=== PATIENT | male | born 1965 | race Asian ===

== ENCOUNTER 2016-10-17 10:04 | Outpatient (CLI) | payer MEDICAID | END 2016-10-17 10:05 | disposition home or self-care (01) | DX: M25.562 Pain in left knee (principal) ==

== ENCOUNTER 2016-11-17 11:07 | Outpatient (CLI) | payer MEDICAID | END 2016-11-17 11:08 | disposition home or self-care (01) | DX: I10 Essential (primary) hypertension (principal); E78.5 Hyperlipidemia, unspecified; E03.8 Other specified hypothyroidism ==

== ENCOUNTER 2016-11-21 09:24 | Outpatient (CLI) | payer MEDICAID | END 2016-11-21 09:25 | disposition home or self-care (01) | DX: D53.9 Nutritional anemia, unspecified (principal) ==

== ENCOUNTER 2017-04-04 08:26 | Outpatient (CLI) | payer MEDICAID ==
--- NOTE | 2017-04-04 14:27 | MRI Report ---
EXAM: LEFT KNEE MRI WITHOUT CONTRAST EXAM DATE: 04/04/2017 09:14 AM. CLINICAL HISTORY: Pain in left knee. COMPARISON: Plain x-ray of the knee from 10/17/2016. TECHNIQUE: Multiplanar, multisequence T1-weighted and fluid-sensitive sequences of the knee without c ontrast. Other: None. FINDINGS: Bones: No fractures or subluxations. No marrow edema. No bone lesions. Articular Cartilage: Unremarkable. Medial Meniscus: The medial meniscus is intact. Lateral Meniscus: The lateral meniscus is intact. Cruciate Ligaments: PCL is normal. 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 This is estimated to involve about 75% of the attachment point. Collateral Ligaments: The medial collateral and lateral collateral ligamentous structures are intact. Tendons: Hamstring muscles, quadriceps mechanism appear unremarkable. Popliteus also normal. Musculature: No edema or fatty atrophy. Other: No effusion. Small popliteal cyst. No loose bodies. The medial and lateral retinacula are int act. Small amount of edema is seen in the prepatellar fat pad.. IMPRESSION: 1. 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 2. PCL, collaterals, menisci, bones, and articular surfaces appear unremarkable. 3. Small popliteal cyst. Some edema seen in the suprapatellar fat pad. [facility] MUSCULOSKELETAL RADIOLOGY SECTION Referring Provider Line: [phone] SITE ID: [id number]
== END 2017-04-04 08:27 | disposition home or self-care (01) ==
LOC: DI 08:26
PROVIDERS: ATTEND Orthopaedic Surgery
DX: M25.562 Pain in left knee (principal); S83.512A Sprain of anterior cruciate ligament of left knee, initial encounter; M71.22 Synovial cyst of popliteal space [Baker], left knee

== ENCOUNTER 2018-07-25 09:24 | Outpatient (CLI) | payer MEDICAID ==
[2018-07-25 18:17] LABS: BASOPHILS % (AUTO) 0.8 %; EOSINOPHILS # (AUTO) 0.1 10^3/uL (0.0-0.7); EOSINOPHILS % (AUTO) 1.7 %; HGB - HEMOGLOBIN 15.1 g/dL (14.0-18.0); LYMPHOCYTES % (AUTO) 24.7 %; MEAN CORPUSCULAR HEMOGLOBIN 32.8 pg (27.0-31.0); MEAN CORPUSCULAR VOLUME 99.3 fL (80.0-94.0); MEAN PLATELET VOLUME 7.8 fL (7.4-11.4); MONOCYTES # (AUTO) 0.3 10^3/uL (0.0-1.0); MONOCYTES % (AUTO) 7.6 %; NEUTROPHILS # (AUTO) 2.7 10^3/uL (1.5-6.6); NEUTROPHILS % (AUTO) 65.2 %; PLT - PLATELET COUNT 251 10^3/uL (130-450); RED BLOOD COUNT 4.61 10^6/uL (4.70-6.10); RED CELL DISTRIBUTION WIDTH 12.7 % (12.0-15.0); WHITE BLOOD COUNT 4.1 x10^3/uL (4.8-10.8)
[2018-07-25 18:46] LABS: ALBUMIN 4.6 g/dL (3.2-5.5); ALBUMIN/GLOBULIN RATIO 1.5 (1.0-2.2); ALKALINE PHOSPHATASE 42 IU/L (42-121); ALT ALANINE AMINOTRANSFERASE 18 IU/L (10-60); AST ASPARTATE AMINOTRANSFERASE 19 IU/L (10-42); BILIRUBIN,TOTAL 1.1 mg/dL (0.2-1.0); BUN - BLOOD UREA NITROGEN 19 mg/dL (6-20); CALCIUM 9.1 mg/dL (8.5-10.3); CARBON DIOXIDE - CO2 28 mmol/L (21-32); CHLORIDE 102 mmol/L (101-111); CHOL/HDL RATIO 4.6 (<5.0); CHOLESTEROL 224 mg/dL; CREATININE 0.9 mg/dL (0.6-1.2); GFR - MDRD 88 (>89); GLUCOSE 92 mg/dL (70-100); HDL CHOLESTEROL 49 mg/dL; LDL CHOLESTEROL,CALCULATED 148 mg/dL; SODIUM 137 mmol/L (135-145); TOTAL PROTEIN 7.6 g/dL (6.7-8.2); VLDL CHOLESTEROL 27 mg/dL
== END 2018-07-25 09:25 | disposition home or self-care (01) ==
LOC: LAB.F 09:24
PROVIDERS: ATTEND Nurse Practitioner Family
DX: I10 Essential (primary) hypertension (principal); E78.5 Hyperlipidemia, unspecified
CPT/HCPCS: 36415; 80053; 80061; 83721; 84443; 85025

== ENCOUNTER 2018-08-06 14:07 | Outpatient (CLI) | payer MEDICAID | END 2018-08-06 14:08 | disposition home or self-care (01) | LOC: LAB.F 14:07 | PROVIDERS: ATTEND Nurse Practitioner Family | DX: D53.9 Nutritional anemia, unspecified (principal) | CPT/HCPCS: 36415; 82607; 82746 ==

== ENCOUNTER 2018-09-07 10:27 | Outpatient (CLI) | payer MEDICAID ==
[2018-09-07 18:06] LABS: FOLATE 14.97 ng/mL (5.90 - >24.8)
== END 2018-09-07 10:28 | disposition home or self-care (01) ==
LOC: LAB.F 10:27
PROVIDERS: ATTEND Nurse Practitioner Family
DX: D53.9 Nutritional anemia, unspecified (principal)
CPT/HCPCS: 36415; 82607; 82746

== ENCOUNTER 2021-02-22 12:08 | Outpatient (CLI) | payer MEDICAID ==
[2021-02-22 15:27] LABS: EOSINOPHILS % (AUTO) 0.5 %; HCT - HEMATOCRIT 41.4 % (42.0-52.0); HGB - HEMOGLOBIN 13.8 g/dL (14.0-18.0); LYMPHOCYTES % (AUTO) 24.8 %; MEAN CORPUSCULAR HEMOGLOBIN 32.6 pg (27.0-31.0); MEAN CORPUSCULAR HGB CONC 33.3 g/dL (32.0-36.0); MEAN CORPUSCULAR VOLUME 97.9 fL (80.0-94.0); MEAN PLATELET VOLUME 9.5 fL (7.4-11.4); MONOCYTES # (AUTO) 0.3 10^3/uL (0.0-1.0); MONOCYTES % (AUTO) 6.7 %; NEUTROPHILS # (AUTO) 2.7 10^3/uL (1.5-6.6); NEUTROPHILS % (AUTO) 66.8 %; PLT - PLATELET COUNT 249 10^3/uL (130-450); RED BLOOD COUNT 4.23 10^6/uL (4.70-6.10); RED CELL DISTRIBUTION WIDTH 11.7 % (12.0-15.0)
[2021-02-22 16:09] LABS: ALBUMIN 4.7 g/dL (3.2-5.5); ALBUMIN/GLOBULIN RATIO 1.7 (1.0-2.2); ALKALINE PHOSPHATASE 31 IU/L (42-121); ALT ALANINE AMINOTRANSFERASE 17 IU/L (10-60); AST ASPARTATE AMINOTRANSFERASE 22 IU/L (10-42); BILIRUBIN,TOTAL 0.8 mg/dL (0.2-1.0); BUN - BLOOD UREA NITROGEN 17 mg/dL (6-20); CALCIUM 9.3 mg/dL (8.5-10.3); CARBON DIOXIDE - CO2 25 mmol/L (21-32); CHLORIDE 105 mmol/L (101-111); CHOL/HDL RATIO 3.4 (<5.0); CHOLESTEROL 210 mg/dL; GFR - MDRD 77 (>89); GLUCOSE 106 mg/dL (70-100); HDL CHOLESTEROL 62 mg/dL; LDL CHOLESTEROL,CALCULATED 135 mg/dL; LDL/HDL RATIO 2.2 (<3.6); POTASSIUM 3.9 mmol/L (3.5-5.0); SODIUM 139 mmol/L (135-145); TOTAL PROTEIN 7.5 g/dL (6.7-8.2); TRIGLYCERIDES 67 mg/dL; VLDL CHOLESTEROL 13 mg/dL
== END 2021-02-22 12:09 | disposition home or self-care (01) ==
LOC: LAB.S 12:08
PROVIDERS: ATTEND Internal Medicine
DX: I10 Essential (primary) hypertension (principal); E78.5 Hyperlipidemia, unspecified; Z12.5 Encounter for screening for malignant neoplasm of prostate
CPT/HCPCS: 36415; 80053; 80061; 83721; 84153; 85025

== ENCOUNTER 2021-04-19 08:00 | Outpatient (CLI) | payer MEDICAID ==
--- NOTE | 2021-04-19 15:21 | XRAY Report ---
PROCEDURE: Wrist 3 View RT INDICATIONS: GANGLION CYST OF R DORSAL WRIST TECHNIQUE: 3 views of the wrist were acquired. COMPARISON: None FINDINGS: Bones: No fractures or dislocations. No suspicious bony lesions. Scaphoid view: Not obtained. Soft tissues: No suspicious soft tissue calcifications. IMPRESSION: No visualized acute fracture or dislocation. However, occult injury cannot be excluded. Recommend pati rt interval imaging follow-up in 7-10 days as clinically indicated for additional evaluation. Reviewed by: Kassy Diaz MD on 04/19/2021 3:19 PM PDT Approved by: Kassy Diaz MD on 04/19/2021 3:19 PM PDT Station ID: [id number]
== END 2021-04-19 23:59 | disposition home or self-care (01) ==
LOC: DI.N 08:00
PROVIDERS: ATTEND Physician Assistant
DX: M67.431 Ganglion, right wrist (principal)